=== PATIENT | male | born 1985 | race Caucasian/White ===

== ENCOUNTER 2022-02-26 12:22 | Emergency (ER) | payer BC, SELFPAY ==
[2022-02-26 12:35] VITALS: BP 121/84; PULSE 123; RESP 14; TEMP 36.7; O2SAT 95; BMI 31.2
--- NOTE | 2022-02-26 13:02 | ED.GENADULT ---
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 He has felt a lump there for period of time. 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 The pain is worse with moving flexion extension of his thumb. He has tried some ibuprofen without much success. His work is very heavy. No prior similar injury. Reports the pain is pretty significant and 5 r 6/10 in his forearm Related Data Home Medications Medication Instructions Recorded Confirmed bupropion HCl 150 mg tablet,12 hr mg PO 02/26/22 sustained-release omeprazole 40 mg capsule,delayed mg 02/26/22 release quetiapine 100 mg tablet (Seroquel) mg 02/26/22 quetiapine 200 mg tablet mg 02/26/22 Allergies Allergy/AdvReac Type Severity Reaction Status Date / Time codeine Allergy Severe Dyspnea Verified 02/26/22 12:52 Review of Systems Status of ROS: Reports: 6 or more systems reviewed and unremarkable except as noted in History and below PFSH PFSH Surgical History S/P cholecystectomy Social History Smoking Status: Current every day smoker What tobacco products do you use: cigarettes How often do you have a drink containing alcohol: 2-3 times a week AUDIT-C Alcohol total score: 3 Non-prescribed substance use: denies use Exam Narrative: Exam Narrative: Objective: Patient's vital signs show slightly elevated pulse His right forearm shows de Quervain tenosynovitis and tendon inflammation or injury with flexion extension of his thumb and wrist. Mild soft tissue swelling of the entire forearm from mid forearm distally. Good distal CMS. Moves his fingers fully. No redness or warmth. Const: Vital Signs, click to edit/add: Vital Signs - 24 hr 02/26/22 12:35 Temperature 98.1 F Pulse Rate [Pulse Oximeter] 123 H Respiratory Rate 14 Blood Pressure [Le ft Upper Arm] 121/84 Pulse Oximetry 95 Oxygen Delivery Me thod Room Air Course Vital Signs Vital signs: Initial Vital Signs Temperature 98.1 F 02/26/22 12:35 Temperature Source Temporal Artery Scan 02/26/22 12:35 Pulse Rate 123 H 02/26/22 12:35 Pulse Rhythm 02/26/22 12:35 Respiratory Rate 14 02/26/22 12:35 Blood Pressure 121/84 02/26/22 12:35 Blood Pressure Mean 96 02/26/22 12:35 Blood Pressure Position Sitting 02/26/22 12:35 Pulse Oximetry 95 02/26/22 12:35 Oxygen Delivery Method 02/26/22 12:35 Vital Signs Temperature 98.1 F 02/26/22 12:35 Pulse Rate 123 H 02/26/22 12:35 Respiratory Rate 14 02/26/22 12:35 Blood Pressure 121/84 02/26/22 12:35 Pulse Oximetry 95 02/26/22 12:35 Oxygen Delivery Method 02/26/22 12:35 Temperature 98.1 F 02/26/22 12:35 Pulse Rate 123 H 02/26/22 12:35 Respiratory Rate 14 02/26/22 12:35 Blood Pressure 121/84 02/26/22 12:35 Pulse Oximetry 95 02/26/22 12:35 Oxygen Delivery Method 02/26/22 12:35 Medical Decision Making MDM Narrative Medical decision making narrative: The patient has tenderness with de Quervain maneuver he has tenderness in that extensor tendon area. He has swelling in his forearm. He certainly could have injured a tendon or head just simply inflammation from overuse. But this did seem to come on fairly suddenly and with heavy exertion. At this time I think be appropriate to put him in a splint, minimal use of the right hand, ibuprofen 800 mg q.i.d. for the next several days, and will have him scheduled to see Orthopedics. He might need need more advanced imaging such as MRI of his forearm. He was comfortable plan. Discharge Plan Discharge Clinical Impression: Sprain and strain of wrist Patient Disposition: Home, Self-Care Condition: Stable Additional Instructions: light activity, ice, splint, ortho appt in 2 -3 days. Activity Level: Light activity Discharge Diet: Regular Prescriptions: No Action bupropion HCl 150 mg tablet sustained-release 12 hr PO omeprazole 40 mg capsule,delayed release(DR/EC) Label Comments: TAKE 1 CAPSULE BY MOUTH DAILY BEFORE A MEAL FOR 14 DAYS quetiapine [Seroquel] 100 mg tablet Label Comments: Take one to two tablets by mouth once daily at bedtime. quetiapine 200 mg tablet Stand Alone Forms: [employer] Info Instructions
[2022-02-26] MEDS: IBUPROFEN 400 MG TABLET 800 MG PO (13:27)
[2022-02-26 13:40] VITALS: BP 121/84; PULSE 123; RESP 14; TEMP 36.7
== END 2022-02-26 13:40 | disposition home or self-care (01) ==
PROVIDERS: Emergency Provider Family Medicine
DX: S63.501A Unspecified sprain of right wrist, initial encounter (principal); X50.0XXA Overexertion from strenuous movement or load, initial encounter; Y99.0 Civilian activity done for income or pay
CPT/HCPCS: 99283; A9270

== ENCOUNTER 2022-03-23 02:23 | Emergency (ER) | payer BC, SELFPAY ==
[2022-03-23 02:27] VITALS: BP 113/91; PULSE 138; RESP 22; TEMP 36.3; O2SAT 96; BMI 35.3
--- NOTE | 2022-03-23 02:42 | CRLHL7_ITS ---
For Patients: As a result of the Century Cures Act, medical imaging exams and procedure reports are released immediately into your electronic medical record. You may view this report before your referring provider. If you have questions, please contact your health care provider. INDICATION: Cough TECHNIQUE: Chest 2 views. COMPARISON: None FINDINGS: Cardiovascular and mediastinum: Heart size and vasculature are normal in caliber and appearance. Mediastinum is within normal limits. Lungs and pleural spaces: Lungs are clear. No sign of infiltrate or mass. No sign of pleural effusion. No pneumothorax. Bones and soft tissues: No significant findings. IMPRESSION: No sign of acute disease. Dictated by Gretchen Williamson MD @ 03/23/2022 4:08:56 AM (Electronically Signed)
--- NOTE | 2022-03-23 02:42 | ED.GENADULT ---
HPI - General Adult General Time Seen by Provider: 02:43 Date Seen: 03/23/22 Chief complaint: Shortness of Breath/Dyspnea Stated complaint: Hard time breathing, cough, fluid in lungs Time Seen by Provider: 03/23/22 02:35 Source: patient Mode of arrival: ambulatory Limitations: no limitations History of Present Illness HPI narrative: 37-year-old male who comes in today with shortness of breath starting yesterday evening. He has for a couple of days. Also some nasal congestion. He has been hoarse for couple of months without sore throat. He denies nausea vomiting, has diarrhea which is usual for him. No abdominal pain. No lower extremity swelling. Some pain in the middle of his chest when he coughs. Had COVID about 8 months ago. Related Data Home Medications Medication Instructions Recorded Confirmed bupropion HCl 150 mg tablet,12 hr mg PO 02/26/22 02/28/22 sustained-release omeprazole 40 mg capsule,delayed mg 02/26/22 02/28/22 release quetiapine 100 mg tablet (Seroquel) mg 02/26/22 02/28/22 quetiapine 200 mg tablet mg 02/26/22 02/28/22 Aleve 03/23/22 albuterol sulfate 90 mcg/actuation inhalation 03/23/22 aerosol inhaler (ProAir HFA) Allergies Allergy/AdvReac Type Severity Reaction Status Date / Time codeine Allergy Severe Dyspnea Verified 03/23/22 02:30 metals AdvReac Hives Uncoded 02/28/22 09:30 Review of Systems Status of ROS: Reports: 10 or more systems reviewed and unremarkable except as noted in History and below [facility] Medical History (Updated 03/23/22 @ 03:43 by Gilson Springer MD) Anxiety Depression GERD (gastroesophageal reflux disease) IBS (irritable bowel syndrome) Low back problem Right wrist pain Surgical History S/P cholecystectomy Family History (Updated 02/28/22 @ 09:28 by Flakita Weldon CMA) Paternal Grandfather Diabetes Social History (Updated 02/28/22 @ 09:29 by Flakita Weldon CMA) Smoking Status: Current every day smoker What tobacco products do you use: cigarettes Do you use any of these nicotine containing products: None Second hand tobacco smoke exposure: No How often do you have a drink containing alcohol: 2-3 times a week AUDIT-C Alcohol total score: 3 Non-prescribed substance use: denies use Are you now , , , , never or living with a partner: Social isolation score (0-1 are the most socially isolated patients): 1 Exam Narrative: Exam Narrative: General: Well-developed and well-nourished, no acute distress Head: Atraumatic and normocephalic Eyes: Pupils are equal reactive, extraocular motions intact, conjunctiva clear ENT: External nose and ears are normal, posterior pharynx without erythema or exudate, hoarse voice Neck: No midline cervical tenderness, full spontaneous range of motion the neck, trachea midline, no adenopathy Heart: Tachycardic, regular Lungs: Clear to auscultation bilaterally without wheezes or crackles Abdomen: Soft, nontender, nondistended with active bowel sounds Musculoskeletal: No tenderness, deformity, or edema Neurologic: Awake, alert, and oriented x3, no gross focal neurologic deficits, cranial nerves intact as tested Psych: Mood and affect are appropriate Skin: No rashes Const: Vital Signs, click to edit/add: Vital Signs - 24 hr 03/23/22 02:27 03/23/22 03:01 03/23/22 03:16 Temperature 97.4 F L Pulse Rate [Left P ulse Oximeter] 138 H 112 H 105 H Respiratory Rate 22 Blood Pressure [Le ft Upper Arm] 113/91 H Pulse Oximetry 96 95 94 Oxygen Delivery Me thod Room Air Room Air 03/23/22 03:50 Temperature Pulse Rate [Left P ulse Oximeter] 115 H Respiratory Rate 20 Blood Pressure [Le ft Upper Arm] 129/92 H Pulse Oximetry 94 Oxygen Delivery Me thod Course Course Hospital Course: Patient is prior records reviewed. Includes but not limited to upper respiratory infection, pneumonia, dysrhythmia, heart failure, asthma, anemia. Patient presents with shortness of breath and cough. On exam, no hypoxia, he is tachycardic. Hoarse voice, lungs are clear. Labs and x-ray are ordered along with IV fluid EKG. Reevaluation(s) Reevaluation #1: Labs so far reassuring with normal white blood cell count, negative D-dimer, negative BNP, normal troponin is not show any acute infiltrates, radiology interpretation is pending. DuoNeb was ordered. Heart rate has improved. Time: 03:33 Reevaluation #2: Patient rechecked after nebulizer treatment. Heart rate was into the high 90s but after neb back to low 100s although does decrease into the 90s. Oxygen saturations in the mid 90s but improve after coughing. Patient feels better after nebulizer able for discharge. Time: 04:13 Vital Signs Vital signs: Initial Vital Signs Temperature 97.4 F L 03/23/22 02:27 Temperature Source Temporal Artery Scan 03/23/22 02:27 Pulse Rate 138 H 03/23/22 02:27 Respiratory Rate 22 03/23/22 02:27 Blood Pressure 113/91 H 03/23/22 02:27 Blood Pressure Mean 98 03/23/22 02:27 Blood Pressure Position Sitting 03/23/22 02:27 Pulse Oximetry 96 03/23/22 02:27 Oxygen Delivery Method 03/23/22 02:27 Vital Signs Temperature 97.4 F L 03/23/22 02:27 Pulse Rate 138 H 03/23/22 02:27 Respiratory Rate 22 03/23/22 02:27 Blood Pressure 113/91 H 03/23/22 02:27 Pulse Oximetry 96 03/23/22 02:27 Oxygen Delivery Method 03/23/22 02:27 Temperature 97.4 F L 03/23/22 02:27 Pulse Rate 115 H 03/23/22 03:50 Respiratory Rate 20 03/23/22 03:50 Blood Pressure 129/92 H 03/23/22 03:50 Pulse Oximetry 94 03/23/22 03:50 Oxygen Delivery Method 03/23/22 03:16 Medical Decision Making Medical Records Medical records reviewed: Yes I reviewed the patient's medical records Lab Data Lab results reviewed: Yes I reviewed the patient's lab results Labs: Lab Results 03/23/22 03/23/22 03/23/22 Range/Units 02:50 02:53 02:53 WBC 7.51 (4.50-11.00) K/uL RBC 4.61 (4.30-5.90) m/uL Hgb 15.5 (13.5-17.5) gm/dL Hct 45.2 (37.0-53.0) % MCV 98 (80-100) fL MCH 34 (26-34) pg MCHC 34 (32-36) gm/dL RDW Coeff of Jennifer 14.5 (11.5-15.5) % Plt Count 184 (140-440) K/uL Neut % (Auto) 55.2 (42.0-72.0) % Lymph % (Auto) 30.1 (20-44) % [place] % (Auto) 10.1 (0.0-11.0) % Eos % (Auto) 3.6 (0.0-7.0) % Baso % (Auto) 0.7 (0.0-3.0) % Neut # (Auto) 4.15 (1.7-7.0) K/uL Lymph # (Auto) 2.26 (0.90-2.90) K/uL [place] # (Auto) 0.80 (0.00-0.90) K/UL Eos # (Auto) 0.27 (0.00-0.50) K/uL Baso # (Auto) 0.05 (0.00-0.30) K/uL Abs Immat Gran (auto) 0.02 (0.00-0.30) K/uL D-Dimer Quant (PE/DVT) 0.35 (0.00-0.50) ug/ml Sodium 137 (135-149) mmol/L Potassium 3.8 (3.6-5.1) mmol/L Chloride 105 (96-114) mmol/L Carbon Dioxide 21 (20-32) mmol/L BUN 4 L (5-24) mg/dL Creatinine 0.7 (0.5-1.5) mg/dL Estimated Creat Clear 158.59 Estimated GFR 122 ml/min Glucose 109 (60-115) mg/dL Calcium 8.6 (8.4-10.6) mg/dL NT-Pro-B Natriuret Pep 16 (0-125) PG/mL POC Troponin I (0.01-0.04) ng/ml 03/23/22 Range/Units 03:10 WBC (4.50-11.00) K/uL RBC (4.30-5.90) m/uL Hgb (13.5-17.5) gm/dL Hct (37.0-53.0) % MCV (80-100) fL MCH (26-34) pg MCHC (32-36) gm/dL RDW Coeff of Jennifer (11.5-15.5) % Plt Count (140-440) K/uL Neut % (Auto) (42.0-72.0) % Lymph % (Auto) (20-44) % [place] % (Auto) (0.0-11.0) % Eos % (Auto) (0.0-7.0) % Baso % (Auto) (0.0-3.0) % Neut # (Auto) (1.7-7.0) K/uL Lymph # (Auto) (0.90-2.90) K/uL [place] # (Auto) (0.00-0.90) K/UL Eos # (Auto) (0.00-0.50) K/uL Baso # (Auto) (0.00-0.30) K/uL Abs Immat Gran (auto) (0.00-0.30) K/uL D-Dimer Quant (PE/DVT) (0.00-0.50) ug/ml Sodium (135-149) mmol/L Potassium (3.6-5.1) mmol/L Chloride (96-114) mmol/L Carbon Dioxide (20-32) mmol/L BUN (5-24) mg/dL Creatinine (0.5-1.5) mg/dL Estimated Creat Clear Estimated GFR ml/min Glucose (60-115) mg/dL Calcium (8.4-10.6) mg/dL NT-Pro-B Natriuret Pep (0-125) PG/mL POC Troponin I 0.01 (0.01-0.04) ng/ml Imaging Data Chest x-ray: Attestation: I have reviewed the pertinent imaging results. My impression: No acute findings Radiologist's impression: No sign of acute disease ECG Data Attestation: I personally reviewed and interpreted this ECG as follows: Prior ECG tracings: not available for review Interpretation: Performed at 2:42 a.m. demonstrates sinus tachycardia rate 113, no elevations or depressions, normal intervals, normal axis, QTC 455. No prior for comparison. Discharge Plan Discharge Clinical Impression: Hoarseness, Acute bronchitis Patient Disposition: Home, Self-Care Condition: Stable Instructions: Acute Bronchitis (ED) Additional Instructions: Follow-up with your primary care doctor this week. Follow-up with Dr. Hardin and regarding your hoarseness. Use your inhaler 2 puffs every 2 hours while awake today, then go back to every 4 hours as needed Start oral steroid (prednisone) later this morning Activity Level: No Restrictions Discharge Diet: Regular Prescriptions: No Action bupropion HCl 150 mg tablet sustained-release 12 hr PO omeprazole 40 mg capsule,delayed release(DR/EC) Label Comments: TAKE 1 CAPSULE BY MOUTH DAILY BEFORE A MEAL FOR 14 DAYS quetiapine [Seroquel] 100 mg tablet Label Comments: Take one to two tablets by mouth once daily at bedtime. quetiapine 200 mg tablet Aleve albuterol sulfate [ProAir HFA] 90 mcg/actuation HFA aerosol inhaler INHALATION Label Comments: INHALE 2 PUFFS FOUR TIMES DAILY NEEDED FOR SHORTNESS OF BREATH Follow Up/Referrals: Provider,Not a Local [Primary Care Provider] - Warren Kay MD [Staff Physician] - Stand Alone Forms: [employer] Info Instructions
[2022-03-23] MEDS: 0.9 % SODIUM CHLORIDE 1000 ml 1,000 ML IV (02:55)
[2022-03-23 02:56] LABS: Basophils Absolute Auto 0.05 K/uL (0.00-0.30); Basophils Percent Auto 0.7 % (0.0-3.0); Eosinophils Absolute Auto 0.27 K/uL (0.00-0.50); Eosinophils Percent Auto 3.6 % (0.0-7.0); Hematocrit 45.2 % (37.0-53.0); Hemoglobin* 15.5 gm/dL (13.5-17.5); Immature Granulocytes Abs Auto 0.02 K/uL (0.00-0.30); Lymphocytes Absolute Auto 2.26 K/uL (0.90-2.90); Lymphocytes Percent Auto 30.1 % (20-44); Mean Corpuscular HGB Conc 34 gm/dL (32-36); Mean Corpuscular Hemoglobin 34 pg (26-34); Mean Corpuscular Volume 98 fL (80-100); Monocytes Percent Auto 10.1 % (0.0-11.0); Neutrophils Absolute Auto 4.15 K/uL (1.7-7.0); Neutrophils Percent Auto 55.2 % (42.0-72.0); Platelet Count* 184 K/uL (140-440); RDW Coefficient of Variation % 14.5 % (11.5-15.5); Red Blood Count 4.61 m/uL (4.30-5.90); Slide Review Reflex No; White Blood Count* 7.51 K/uL (4.50-11.00)
[2022-03-23 03:01] VITALS: PULSE 112; O2SAT 95
[2022-03-23 03:14] LABS: Chloride* 105 mmol/L (96-114); Potassium* 3.8 mmol/L (3.6-5.1); Sodium* 137 mmol/L (135-149)
[2022-03-23 03:16] VITALS: PULSE 105; O2SAT 94
[2022-03-23 03:17] LABS: Blood Urea Nitrogen* 4 mg/dL (5-24); Carbon Dioxide* 21 mmol/L (20-32); Creatinine* 0.7 mg/dL (0.5-1.5); Est. Creatinine Clearance* 158.59; Estimated Glomerular Filt Rate 122 ml/min; Glucose* 109 mg/dL (60-115)
[2022-03-23 03:18] LABS: Calcium* 8.6 mg/dL (8.4-10.6)
[2022-03-23 03:19] LABS: D Dimer Quantitative* 0.35 ug/ml (0.00-0.50)
[2022-03-23 03:26] LABS: NT Pro B Type NatriureticPept* 16 PG/mL (0-125)
[2022-03-23 03:32] LABS: Troponin, Point-of-Care* 0.01 ng/ml (0.01-0.04)
[2022-03-23] MEDS: IPRAT-ALBUT 0.5-2.5 MG/3 ML NEB 1 NEB IH (03:39)
[2022-03-23] MEDS: METHYLPREDNISOLONE SOD SUCC 62.5 MG/ML (125) 125 MG IVP (03:45)
[2022-03-23 03:50] VITALS: BP 129/92; PULSE 115; RESP 20; O2SAT 94
== END 2022-03-23 04:17 | disposition home or self-care (01) ==
PROVIDERS: Emergency Provider Family Medicine
DX: J20.9 Acute bronchitis, unspecified (principal)
CPT/HCPCS: 36415; 71046; 80048; 83880; 84484; 85025; 85379; 93005; 94640; 96374; 99284; J2930; J7030

== ENCOUNTER 2022-04-04 20:01 | Emergency (ER) | payer BC, SELFPAY ==
[2022-04-04 20:17] VITALS: BP 136/101; PULSE 112; RESP 20; TEMP 37.1; O2SAT 95; BMI 35.3
--- NOTE | 2022-04-04 20:42 | CRLHL7_ITS ---
For Patients: As a result of the Cures Act, medical imaging exams and procedure reports are released immediately into your electronic medical record. You may view this report before your referring provider. If you have questions, please contact your health care provider. INDICATION: Lower right greater than left anterior chest pain. COMPARISON: 03/23/2022. FINDINGS: The cardiomediastinal silhouette, lung parenchyma, pulmonary vasculature and pleural surfaces are all normal in appearance. The bony thorax appears intact. IMPRESSION: Negative study. Dictated by Milton Thompson MD @ 04/04/2022 9:29:27 PM (Electronically Signed)
--- NOTE | 2022-04-04 20:50 | ED_ITS ---
HPI - Chest Pain General Chief Complaint: Chest Pain Stated Complaint: TIGHTENING IN CHEST,SWOLLEN LEGS,ARTERIES HURT Time Seen by Provider: 04/04/22 20:33 History of Present Illness HPI narrative: 37-year-old man presenting to the emergency department with concern of chest pain. Occurred earlier today at rest in the right chest a intense sense of pressure radiating across to his low left. This apparently settled and then recurred this evening waking him from sleep. Couple of days ago he had noted some rapid heartbeats at 1 point but has not actually noticed that here today. I would note that he is tachycardic on arrival. He admits to being anxious about this visit. at the time of this interview he feels much better much less pain. Is not really having pleuritic pain. Has not had a cough but is being treated currently a for a sinus infection with Augmentin. Further questioning that he had had some leg pain a day ago in the right leg. Seemed spontaneous. I do note a bruise above his right knee but this was from a chair hitting him and seems separate from what he was describing. The area around his knee or the upper lower leg on the right suddenly became rather painful and he then developed significant swelling in his ankle and upper foot still having pain in the area around the ankle. The swelling has diminished. No significant family history of cardiovascular disease. Smokes a pack a day and admittedly drinks too much fireball. Due to ?sludge? he has had a cholecystectomy. Related Data Home Medications Medication Instructions Recorded Confirmed bupropion HCl 150 mg tablet,12 hr mg PO 02/26/22 04/01/22 sustained-release omeprazole 40 mg capsule,delayed mg 02/26/22 04/01/22 release quetiapine 100 mg tablet (Seroquel) mg 02/26/22 04/01/22 quetiapine 200 mg tablet mg 02/26/22 04/01/22 Aleve 03/23/22 04/01/22 albuterol sulfate 90 mcg/actuation inhalation 03/23/22 04/01/22 aerosol inhaler (ProAir HFA) Previous Rx's Medication Instructions Recorded amoxicillin 875 mg-potassium 1 tab PO BID #20 tabs 04/01/22 clavulanate 125 mg tablet Allergies Allergy/AdvReac Type Severity Reaction Status Date / Time codeine Allergy Severe Dyspnea Verified 04/01/22 13:28 metals AdvReac Hives Uncoded 04/01/22 13:28 Review of Systems Status of ROS Reports: 10 or more systems reviewed and unremarkable except as noted in History and below [facility] Medical History Anxiety Depression GERD (gastroesophageal reflux disease) IBS (irritable bowel syndrome) Low back problem Right wrist pain Surgical History S/P cholecystectomy Family History (Updated 02/28/22 @ 09:28 by Flakita Weldon [facility]) Paternal Grandfather Diabetes Social History Smoking Status: Current every day smoker What tobacco products do you use: cigarettes Do you use any of these nicotine containing products: None Second hand tobacco smoke exposure: No How often do you have a drink containing alcohol: 4 or more times a week How many standard drinks containing alcohol do you have on a typical day: 3 or 4 How often do you have six or more drinks on one occasion: Less than monthly AUDIT-C Alcohol total score: 6 Non-prescribed substance use: denies use Are you now , , , , never or living with a partner: Social isolation score (0-1 are the most socially isolated patients): 1 Exam Narrative Exam Narrative: Pleasant. Generally flushed. 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 Extensive tattoos over upper back and lower legs. Feet and ankles seem a little puffy bilaterally. No erythematous changes here though. Fully alert. Somewhat tremulous. Cranial nerves 2-12 intact. Cardiovascular is tachycardic regular rhythm Oropharynx hyperemic. Sticky. Lungs are clear. Abdomen is overweight soft. He is moderately tender to palpation the right upper quadrant rib margin continuing to the epigastrium. A little bit also on the left in the same subcostal area. Clearly more tender in the right than elsewhere. Const Vital Signs, click to edit/add: Vital Signs - 24 hr 04/04/22 20:17 04/04/22 21:57 Temperature 98.7 F Pulse Rate [Pulse Oximeter] 112 H 105 H Respiratory Rate 20 18 Blood Pressure [Right Upper Arm] 136/101 H 143/91 H Pulse Oximetry 95 97 Oxygen Delivery Method Room Air Documenting provider has reviewed patient's vital signs: yes Course Course Hospital Course: Initiated on IV fluids. Initial EKG reviewed by me shows a sinus tachycardia at 118. Some baseline irritability consistent with his tremor Reevaluation(s) Reevaluation #1: With return of pain is requesting pain medication. Palpation in the right upper abdomen is clearly source of maximal pain. Still tremulous. Looks more flushed. Ordered for ketorolac and lorazepam. Ultrasound limited pending. Transaminases were rather elevated, CRP as well at 2.7. However bilirubin was normal Reevaluation #2: Overall improved. No longer so flushed. Less tremulous Vital Signs Vital signs: Initial Vital Signs Temperature 98.7 F 04/04/22 20:17 Temperature Source Temporal Artery Scan 04/04/22 20:17 Pulse Rate 112 H 04/04/22 20:17 Respiratory Rate 20 04/04/22 20:17 Blood Pressure 136/101 H 04/04/22 20:17 Blood Pressure Mean 112 04/04/22 20:17 Pulse Oximetry 95 04/04/22 20:17 Oxygen Delivery Method 04/04/22 20:17 Vital Signs Temperature 98.7 F 04/04/22 20:17 Pulse Rate 112 H 04/04/22 20:17 Respiratory Rate 20 04/04/22 20:17 Blood Pressure 136/101 H 04/04/22 20:17 Pulse Oximetry 95 04/04/22 20:17 Oxygen Delivery Method 04/04/22 20:17 Temperature 98.7 F 04/04/22 20:17 Pulse Rate 105 H 04/04/22 21:57 Respiratory Rate 18 04/04/22 21:57 Blood Pressure 143/91 H 04/04/22 21:57 Pulse Oximetry 97 04/04/22 21:57 Oxygen Delivery Method 04/04/22 20:17 MDM - Chest Pain MDM Narrative Medical decision making narrative: Chest x-ray reviewed by me was negative. No pneumothorax or other acute pulmonary process. Spoke to tech after abdominal ultrasound, limited. To the abdominal gas is little difficult to visualize. Other than a fatty liver appeared normal with common bile duct of 5 mm. Radiology over read reviewed suggestive of steatosis Added on hepatitis panel (pending as send out) though more likely etiology of evident inflammation in the liver is alcohol consumption Medical Records Data Attestation: I reviewed the patient's medical records. Lab Data Attestation: I reviewed the patient's lab results. Labs: Lab Results 04/04/22 04/04/22 04/04/22 Range/Units 21:00 21:00 21:00 WBC 7.19 (4.50-11.00) K/uL RBC 4.15 L (4.30-5.90) m/uL Hgb 14.0 (13.5-17.5) gm/dL Hct 40.9 (37.0-53.0) % MCV 99 (80-100) fL MCH 34 (26-34) pg MCHC 34 (32-36) gm/dL RDW Coeff of Jennifer 14.6 (11.5-15.5) % Plt Count 198 (140-440) K/uL Neut % (Auto) 68.9 (42.0-72.0) % Lymph % (Auto) 20.4 (20-44) % Ross % (Auto) 7.4 (0.0-11.0) % Eos % (Auto) 2.5 (0.0-7.0) % Baso % (Auto) 0.4 (0.0-3.0) % Neut # (Auto) 4.95 (1.7-7.0) K/uL Lymph # (Auto) 1.47 (0.90-2.90) K/uL [place] # (Auto) 0.50 (0.00-0.90) K/UL Eos # (Auto) 0.18 (0.00-0.50) K/uL Baso # (Auto) 0.03 (0.00-0.30) K/uL Abs Immat Gran (auto) 0.03 (0.00-0.30) K/uL D-Dimer Quant (PE/DVT) 0.37 (0.00-0.50) ug/ml VBG pH (7.32-7.43) VBG pCO2 (40-50) mmHG VBG pO2 (25-47) mmHG VBG HCO3 (21-28) mmol/L Sodium 137 (135-149) mmol/L Potassium 3.5 L (3.6-5.1) mmol/L Chloride 107 (96-114) mmol/L Carbon Dioxide 24 (20-32) mmol/L BUN 5 (5-24) mg/dL Creatinine 0.6 (0.5-1.5) mg/dL Estimated Creat Clear 185.02 Estimated GFR 128 ml/min Glucose 117 H (60-115) mg/dL Calcium 8.5 (8.4-10.6) mg/dL Magnesium 1.7 (1.5-2.6) mg/dL Total Bilirubin 0.7 (0.1-1.5) mg/dL Direct Bilirubin 0.5 (0.0-0.5) mg/dL AST 129 H (12-35) U/L ALT 99 H (4-50) U/L Alkaline Phosphatase 232 H (40-150) U/L Troponin I < 0.01 L (0.01-0.04) ng/mL C-Reactive Protein 2.7 H (0.5-1.0) mg/dL NT-Pro-B Natriuret Pep 58 (0-125) PG/mL Total Protein 6.6 (6.0-8.3) g/dL Albumin 3.4 (3.3-5.0) g/dL Lipase 224 (23-300) U/L Ethyl Alcohol 0.02 (0.01-0.03) % SARS-CoV-2 (PCR) (Negative) POC Troponin I (0.01-0.04) ng/ml 04/04/22 04/04/22 04/04/22 Range/Units 21:00 21:00 21:00 WBC (4.50-11.00) K/uL RBC (4.30-5.90) m/uL Hgb (13.5-17.5) gm/dL Hct (37.0-53.0) % MCV (80-100) fL MCH (26-34) pg MCHC (32-36) gm/dL RDW Coeff of Jennifer (11.5-15.5) % Plt Count (140-440) K/uL Neut % (Auto) (42.0-72.0) % Lymph % (Auto) (20-44) % Ross % (Auto) (0.0-11.0) % Eos % (Auto) (0.0-7.0) % Baso % (Auto) (0.0-3.0) % Neut # (Auto) (1.7-7.0) K/uL Lymph # (Auto) (0.90-2.90) K/uL Ross # (Auto) (0.00-0.90) K/UL Eos # (Auto) (0.00-0.50) K/uL Baso # (Auto) (0.00-0.30) K/uL Abs Immat Gran (auto) (0.00-0.30) K/uL D-Dimer Quant (PE/DVT) (0.00-0.50) ug/ml VBG pH 7.507 H (7.32-7.43) VBG pCO2 31 L (40-50) mmHG VBG pO2 66.7 H (25-47) mmHG VBG HCO3 25 (21-28) mmol/L Sodium (135-149) mmol/L Potassium (3.6-5.1) mmol/L Chloride (96-114) mmol/L Carbon Dioxide (20-32) mmol/L BUN (5-24) mg/dL Creatinine (0.5-1.5) mg/dL Estimated Creat Clear Estimated GFR ml/min Glucose (60-115) mg/dL Calcium (8.4-10.6) mg/dL Magnesium (1.5-2.6) mg/dL Total Bilirubin (0.1-1.5) mg/dL Direct Bilirubin (0.0-0.5) mg/dL AST (12-35) U/L ALT (4-50) U/L Alkaline Phosphatase (40-150) U/L Troponin I (0.01-0.04) ng/mL C-Reactive Protein (0.5-1.0) mg/dL NT-Pro-B Natriuret Pep (0-125) PG/mL Total Protein (6.0-8.3) g/dL Albumin (3.3-5.0) g/dL Lipase (23-300) U/L Ethyl Alcohol (0.01-0.03) % SARS-CoV-2 (PCR) Negative SARS-CoV-2 (Negative) POC Troponin I 0.00 L (0.01-0.04) ng/ml Discharge Plan Discharge Clinical Impression: Right upper quadrant abdominal pain, Hepatic steatosis, Anxiety Patient Disposition: Home, Self-Care Condition: Improved Additional Instructions: Yes I do think it is important that you cut back on your alcohol consumption. I think it is likely contributing to what we are seeing here in your liver and possibly your pain and likely your heartburn symptoms. Return for marked increase in persistent pain, associated shortness of breath or fever. Do what you can to quit smoking; I know, all these suggestions. Quitplan used to have nicotine replacement and coaching. might want to follow up with your care provider to review your anxiety symptoms/treatment. 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 Prescriptions: No Action amoxicillin-pot clavulanate 875-125 mg tablet 1 tab PO BID Qty: 20 0RF bupropion HCl 150 mg tablet sustained-release 12 hr PO omeprazole 40 mg capsule,delayed release(DR/EC) Label Comments: TAKE 1 CAPSULE BY MOUTH DAILY BEFORE A MEAL FOR 14 DAYS quetiapine [Seroquel] 100 mg tablet Label Comments: Take one to two tablets by mouth once daily at bedtime. quetiapine 200 mg tablet Aleve albuterol sulfate [ProAir HFA] 90 mcg/actuation HFA aerosol inhaler INHALATION Label Comments: INHALE 2 PUFFS FOUR TIMES DAILY NEEDED FOR SHORTNESS OF BREATH Follow Up/Referrals: Provider,Not a Local [Primary Care Provider] - Stand Alone Forms: [employer] Info Instructions
[2022-04-04 21:17] LABS: HCO3 VBG 25 mmol/L (21-28); PCO2 VBG 31 mmHG (40-50); PO2 VBG 66.7 mmHG (25-47); pH VBG 7.507 (7.32-7.43)
[2022-04-04 21:19] LABS: Basophils Absolute Auto 0.03 K/uL (0.00-0.30); Basophils Percent Auto 0.4 % (0.0-3.0); Eosinophils Absolute Auto 0.18 K/uL (0.00-0.50); Eosinophils Percent Auto 2.5 % (0.0-7.0); Hematocrit 40.9 % (37.0-53.0); Immature Granulocytes Abs Auto 0.03 K/uL (0.00-0.30); Lymphocytes Absolute Auto 1.47 K/uL (0.90-2.90); Lymphocytes Percent Auto 20.4 % (20-44); Mean Corpuscular HGB Conc 34 gm/dL (32-36); Mean Corpuscular Hemoglobin 34 pg (26-34); Mean Corpuscular Volume 99 fL (80-100); Monocytes Percent Auto 7.4 % (0.0-11.0); Neutrophils Absolute Auto 4.95 K/uL (1.7-7.0); Neutrophils Percent Auto 68.9 % (42.0-72.0); Platelet Count* 198 K/uL (140-440); RDW Coefficient of Variation % 14.6 % (11.5-15.5); Red Blood Count 4.15 m/uL (4.30-5.90); White Blood Count* 7.19 K/uL (4.50-11.00)
[2022-04-04 21:21] LABS: Slide Review Reflex No
[2022-04-04] MEDS: 0.9 % SODIUM CHLORIDE 1000 ml 1,000 ML IV (21:25)
[2022-04-04 21:34] LABS: Albumin* 3.4 g/dL (3.3-5.0); Chloride* 107 mmol/L (96-114)
[2022-04-04 21:35] LABS: Potassium* 3.5 mmol/L (3.6-5.1); Sodium* 137 mmol/L (135-149)
[2022-04-04 21:37] LABS: Carbon Dioxide* 24 mmol/L (20-32); Creatinine* 0.6 mg/dL (0.5-1.5); Est. Creatinine Clearance* 185.02; Estimated Glomerular Filt Rate 128 ml/min
[2022-04-04 21:38] LABS: Alanine Aminotransferase* 99 U/L (4-50); Alkaline Phosphatase* 232 U/L (40-150); Aspartate Amino Transferase* 129 U/L (12-35); Bilirubin Direct* 0.5 mg/dL (0.0-0.5); Bilirubin Total* 0.7 mg/dL (0.1-1.5); Blood Urea Nitrogen* 5 mg/dL (5-24); Calcium* 8.5 mg/dL (8.4-10.6); Glucose* 117 mg/dL (60-115); Lipase* 224 U/L (23-300); Magnesium* 1.7 mg/dL (1.5-2.6); Total Protein* 6.6 g/dL (6.0-8.3)
[2022-04-04 21:39] LABS: Ethanol* 0.02 % (0.01-0.03)
[2022-04-04 21:40] LABS: C Reactive Protein* 2.7 mg/dL (0.5-1.0); D Dimer Quantitative* 0.37 ug/ml (0.00-0.50)
[2022-04-04 21:47] LABS: NT Pro B Type NatriureticPept* 58 PG/mL (0-125)
[2022-04-04 21:57] VITALS: BP 143/91; PULSE 105; RESP 18; O2SAT 97
--- NOTE | 2022-04-04 22:06 | CRLHL7_ITS ---
For Patients: As a result of the Century Cures Act, medical imaging exams and procedure reports are released immediately into your electronic medical record. You may view this report before your referring provider. If you have questions, please contact your health care provider. INDICATION: Right upper quadrant abdomen pain. TECHNIQUE: Ultrasound abdomen limited. Sonographic images of the right upper quadrant were obtained using alvarez-scale and color Doppler images. COMPARISON: None. FINDINGS: Liver: Increased hepatic echotexture suggestive of chronic hepatocellular disease, including steatosis. No suspicious masses. No intrahepatic biliary dilatation. Gallbladder: Surgically absent Common bile duct: 5 mm. Pancreas: Not well seen. Right kidney: Limited evaluation secondary to body habitus. Otherwise, normal. Vasculature: Poorly visualized. IMPRESSION: Increased hepatic echotexture suggestive of chronic hepatocellular disease, including steatosis. Dictated by Cornell aHle MD @ 04/04/2022 11:35:17 PM (Electronically Signed)
[2022-04-04 22:23] LABS: Troponin I* < 0.01 ng/mL (0.01-0.04)
[2022-04-04] MEDS: LORazepam 2 MG/ML inj 1 MG IVP (22:36)
[2022-04-04] MEDS: KETOROLAC 30 MG/ML inj IVP (22:37)
[2022-04-04 23:03] LABS: SARS PCR* Negative SARS-CoV-2 (Negative)
[2022-04-07 11:12] LABS: Hepatitis B Core Antibody, IgM Negative (Negative); Hepatitis B Surface Antigen Negative (Negative); Hepatitis C Antibody by CIA Negative (Negative)
== END 2022-04-05 00:52 | disposition home or self-care (01) ==
PROVIDERS: Emergency Provider Family Medicine
DX: R10.11 Right upper quadrant pain (principal); K76.0 Fatty (change of) liver, not elsewhere classified; F41.9 Anxiety disorder, unspecified
CPT/HCPCS: 36415; 71045; 76705; 80048; 80074; 80076; 82077; 82803; 83690; 83735; 83880; 84484; 85025; 85379; 86140; 87635; 93005; 94761; 96374; 96375; 99284; J1885; J2060; J7030

== ENCOUNTER 2022-04-30 20:50 | Emergency (ER) | payer BC, SELFPAY ==
[2022-04-30] VITALS (13 sets, daily range): BP systolic 126–148; BP diastolic 84–98; PULSE 93–118; RESP 22; TEMP 36.8; O2SAT 93–99; BMI 35.3
--- NOTE | 2022-04-30 21:26 | ED.GENADULT ---
HPI - General Adult General Chief complaint: Abdominal Pain Stated complaint: Shortness of Breath Chest Tightness Time Seen by Provider: 04/30/22 20:52 History of Present Illness HPI narrative: 37-year-old contact man returning to the emergency department with concern of chest tightness difficulty breathing during this with questioning he would attribute to alcohol withdrawal. Has been actively working today has had small glass I take to mean about 8 oz of fireball. Had been as much as a ?large bottle?. Yesterday 2 glasses. Does not have a history of withdrawal beyond shakes vomiting as well having vomited without hematemesis about 4 times over the last 9 hours since noon. And he tries to drink something. No history of pancreatitis. Is having some abdominal discomfort during describes more of a fullness in the tightness. Is status post cholecystectomy for ?sludge?. Does have some medications in the form of Seroquel for sleep but he has been having trouble breathing on it ENT visit it sounds like about a month ago and is pending a sleep study. No history of DTs/seizures. Does have a history of substance abuse beyond alcohol the urine half ago. Was sober of alcohol approximately a year prior to this last February. Last visit to this department I saw Mr. Romeo ruffin about a month ago. He indicates about a week of less drinking and then escalated again Related Data Home Medications Medication Instructions Recorded Confirmed bupropion HCl 150 mg tablet,12 hr 150 mg PO DAILY 02/26/22 04/30/22 sustained-release quetiapine 100 mg tablet (Seroquel) mg 02/26/22 04/01/22 quetiapine 200 mg tablet 200 mg PO QHS 02/26/22 04/30/22 Aleve PRN 03/23/22 04/01/22 albuterol sulfate 90 mcg/actuation 2 inh inhalation PRN 03/23/22 04/01/22 aerosol inhaler (ProAir HFA) topiramate 50 mg tablet mg 04/30/22 Previous Rx's Medication Instructions Recorded lorazepam 1 mg tablet 1 mg PO TID PRN anxiety #10 tabs 05/01/22 ondansetron 4 mg disintegrating 4 mg PO Q4-6H PRN nausea and 05/01/22 tablet vomiting #12 tabs propranolol 20 mg tablet 20 mg PO TID PRN palpitations #30 05/01/22 tabs Allergies Allergy/AdvReac Type Severity Reaction Status Date / Time codeine Allergy Severe Dyspnea Verified 04/30/22 21:04 metals AdvReac Hives Uncoded 04/01/22 13:28 Review of Systems Status of ROS: Reports: 10 or more systems reviewed and unremarkable except as noted in History and below [facility] Medical History Anxiety Depression GERD (gastroesophageal reflux disease) IBS (irritable bowel syndrome) Low back problem Right wrist pain Surgical History S/P cholecystectomy Family History Paternal Grandfather Diabetes Social History Smoking Status: Current every day smoker What tobacco products do you use: cigarettes Do you use any of these nicotine containing products: None Second hand tobacco smoke exposure: No How often do you have a drink containing alcohol: 4 or more times a week How many standard drinks containing alcohol do you have on a typical day: 3 or 4 How often do you have six or more drinks on one occasion: Less than monthly AUDIT-C Alcohol total score: 6 Non-prescribed substance use: denies use Are you now , , , , never or living with a partner: Social isolation score (0-1 are the most socially isolated patients): 1 service: No Exam Narrative: Exam Narrative: Pleasant. Generally flushed. Large man. Numerous tattoos. Generally tremulous. Slightly labored with breathing. Cranial nerves 2-12 intact Head is atraumatic Oropharynx is sticky. Cardiovascular is tachycardic regular rhythm. Abdomen is full tense but not terribly tender. Extremities well perfused without edema. Moving all extremities without difficulty Const: Vital Signs, click to edit/add: Vital Signs - 24 hr 04/30/22 21:01 04/30/22 21:55 04/30/22 21:20 Temperature 98.2 F Pulse Rate 103 H Pulse Rate [Pulse Oximeter] 118 H Respiratory Rate 22 Blood Pressure Blood Pressure [Ri ght Upper Arm] 148/98 H Pulse Oximetry 96 97 99 Oxygen Delivery Me thod Room Air 04/30/22 22:00 04/30/22 22:02 04/30/22 22:03 Temperature Pulse Rate 103 H 98 102 H Pulse Rate [Pulse Oximeter] Respiratory Rate Blood Pressure 135/96 H Blood Pressure [Ri ght Upper Arm] Pulse Oximetry 96 95 93 Oxygen Delivery Me thod 04/30/22 22:30 04/30/22 22:32 04/30/22 23:00 Temperature Pulse Rate 93 93 97 Pulse Rate [Pulse Oximeter] Respiratory Rate Blood Pressure 137/94 H Blood Pressure [Ri ght Upper Arm] Pulse Oximetry 94 93 94 Oxygen Delivery Me thod 04/30/22 23:02 04/30/22 23:03 04/30/22 23:30 Temperature Pulse Rate 95 93 93 Pulse Rate [Pulse Oximeter] Respiratory Rate Blood Pressure 130/86 Blood Pressure [Ri ght Upper Arm] Pulse Oximetry 94 94 94 Oxygen Delivery Me thod 04/30/22 23:32 05/01/22 01:02 05/01/22 00:02 Temperature 98.2 F Pulse Rate 95 90 Pulse Rate [Pulse Oximeter] 100 Respiratory Rate 22 Blood Pressure 126/84 134/95 H Blood Pressure [Ri ght Upper Arm] 121/78 Pulse Oximetry 95 95 94 Oxygen Delivery Me thod Room Air 05/01/22 00:35 05/01/22 01:02 05/01/22 01:32 Temperature Pulse Rate 96 104 H 96 Pulse Rate [Pulse Oximeter] Respiratory Rate Blood Pressure 122/78 121/76 127/86 Blood Pressure [Ri ght Upper Arm] Pulse Oximetry 94 95 94 Oxygen Delivery Me thod 05/01/22 01:58 Temperature 98.2 F Pulse Rate Pulse Rate [Pulse Oximeter] 100 Respiratory Rate 22 Blood Pressure Blood Pressure [Ri ght Upper Arm] 121/78 Pulse Oximetry Oxygen Delivery Me thod Documenting provider has reviewed patient's vital signs: yes Course Course Hospital Course: I think majority of symptoms can be explained by alcohol withdrawal. Will hydrate. Given antiemetic, propranolol and fluids. Reevaluation(s) Reevaluation #1: Overall improved. Less tremulous. Less flushed. Still little labored in breathing and he is wondering whether not may have with all the vomiting aspirated some ?water? and anxiety is driving some of this request. I do not think it is unreasonable though did do a chest x-ray complaint of chest discomfort. Normal chest x-ray one view reviewed by me. Milan's reassured. We did attempt of and detox placement. No beds are available. Information is given for discharge Able to tolerate fluid intake. Vital Signs Vital signs: Initial Vital Signs Temperature 98.2 F 04/30/22 21:01 Temperature Source Temporal Artery Scan 04/30/22 21:01 Pulse Rate 118 H 04/30/22 21:01 Pulse Rhythm 04/30/22 21:01 Respiratory Rate 22 04/30/22 21:01 Blood Pressure 148/98 H 04/30/22 21:01 Blood Pressure Mean 114 04/30/22 21:01 Blood Pressure Position Sitting 04/30/22 21:01 Pulse Oximetry 96 04/30/22 21:01 Oxygen Delivery Method 04/30/22 21:01 Vital Signs Temperature 98.2 F 04/30/22 21:01 Pulse Rate 118 H 04/30/22 21:01 Respiratory Rate 22 04/30/22 21:01 Blood Pressure 148/98 H 04/30/22 21:01 Pulse Oximetry 96 04/30/22 21:01 Oxygen Delivery Method 04/30/22 21:01 Temperature 98.2 F 05/01/22 01:58 Pulse Rate 100 05/01/22 01:58 Respiratory Rate 22 05/01/22 01:58 Blood Pressure 121/78 05/01/22 01:58 Pulse Oximetry 94 05/01/22 01:32 Oxygen Delivery Method 05/01/22 01:02 Medical Decision Making MDM Narrative Medical decision making narrative: I am concerned regarding findings in the live and now with elevating unconjugated bilirubin. I do think though they can be explained alcoholic hepatitis/steatosis. From prior visit hepatitides panel was normal. Mildly elevated lipase. Is requesting upon departure something to help with the shakes. Discussed that I would be prescribing propranolol (It sounds like he has had that in the past) and that he needs to establish primary care. He does appear committed/interested to achieving sobriety. Certainly easier said than done. No detox beds available; may pursue this as outpatient if needed. Lab Data Labs: Lab Results 04/30/22 04/30/22 04/30/22 Range/Units 21:20 21:20 21:20 WBC 12.15 H (4.50-11.00) K/uL RBC 4.49 (4.30-5.90) m/uL Hgb 15.5 (13.5-17.5) gm/dL Hct 44.8 (37.0-53.0) % MCV 100 (80-100) fL MCH 35 H (26-34) pg MCHC 35 (32-36) gm/dL Plt Count 235 (140-440) K/uL Neut % (Auto) 64.7 (42.0-72.0) % Lymph % (Auto) 25.9 (20-44) % [place] % (Auto) 7.8 (0.0-11.0) % Eos % (Auto) 0.4 (0.0-7.0) % Baso % (Auto) 0.7 (0.0-3.0) % Neut # (Auto) 7.90 H (1.7-7.0) K/uL Lymph # (Auto) 3.10 H (0.90-2.90) K/uL [place] # (Auto) 0.90 (0.00-0.90) K/UL Eos # (Auto) 0.00 (0.00-0.50) K/uL Baso # (Auto) 0.10 (0.00-0.30) K/uL Abs Immat Gran (auto) 0.10 (0.00-0.30) K/uL Imm/Tot Granulo (auto) 0.5 % Sodium 132 L (135-149) mmol/L Potassium 4.2 (3.6-5.1) mmol/L Chloride 103 (96-114) mmol/L Carbon Dioxide 18 L (20-32) mmol/L BUN 5 (5-24) mg/dL Creatinine 0.7 (0.5-1.5) mg/dL Estimated Creat Clear 158.59 Estimated GFR 122 ml/min Glucose 103 (60-115) mg/dL Venous Lactic Acid (Serial Order) Calcium 9.5 (8.4-10.6) mg/dL Total Bilirubin (0.1-1.5) mg/dL Direct Bilirubin (0.0-0.5) mg/dL AST (12-35) U/L ALT (4-50) U/L Alkaline Phosphatase (40-150) U/L Troponin I (0.01-0.04) ng/mL C-Reactive Protein 3.7 H (0.5-1.0) mg/dL Total Protein (6.0-8.3) g/dL Albumin (3.3-5.0) g/dL Lipase 327 H (23-300) U/L Ethyl Alcohol 0.03 (0.01-0.03) % 04/30/22 Range/Units 21:20 WBC (4.50-11.00) K/uL RBC (4.30-5.90) m/uL Hgb (13.5-17.5) gm/dL Hct (37.0-53.0) % MCV (80-100) fL MCH (26-34) pg MCHC (32-36) gm/dL Plt Count (140-440) K/uL Neut % (Auto) (42.0-72.0) % Lymph % (Auto) (20-44) % [place] % (Auto) (0.0-11.0) % Eos % (Auto) (0.0-7.0) % Baso % (Auto) (0.0-3.0) % Neut # (Auto) (1.7-7.0) K/uL Lymph # (Auto) (0.90-2.90) K/uL [place] # (Auto) (0.00-0.90) K/UL Eos # (Auto) (0.00-0.50) K/uL Baso # (Auto) (0.00-0.30) K/uL Abs Immat Gran (auto) (0.00-0.30) K/uL Imm/Tot Granulo (auto) % Sodium (135-149) mmol/L Potassium (3.6-5.1) mmol/L Chloride (96-114) mmol/L Carbon Dioxide (20-32) mmol/L BUN (5-24) mg/dL Creatinine (0.5-1.5) mg/dL Estimated Creat Clear Estimated GFR ml/min Glucose (60-115) mg/dL Venous Lactic Acid (Serial Order) Calcium (8.4-10.6) mg/dL Total Bilirubin 2.9 H (0.1-1.5) mg/dL Direct Bilirubin 1.8 H (0.0-0.5) mg/dL AST 195 H (12-35) U/L ALT 61 H (4-50) U/L Alkaline Phosphatase 353 H (40-150) U/L Troponin I < 0.01 L (0.01-0.04) ng/mL C-Reactive Protein (0.5-1.0) mg/dL Total Protein 8.1 (6.0-8.3) g/dL Albumin 4.2 (3.3-5.0) g/dL Lipase (23-300) U/L Ethyl Alcohol (0.01-0.03) % ECG Data Attestation: I personally reviewed and interpreted this ECG as follows: (Sinus tachycardia rate of 104) Discharge Plan Discharge Clinical Impression: Alcohol withdrawal, Anxiety, Alcoholic hepatitis, Alcoholic gastritis Patient Disposition: Home w/ Parent or Adult Condition: Improved Additional Instructions: It is critical that you stop drinking. Please return to AA. Go to a meeting tomorrow morning. Try to get a little daily exercise, ideally outside. Remember to follow-up with that sleep study. Reestablish in primary care for regular visits. They can at least temporarily help you work with your anxiety and this may include medications. This is much more likely to happen with an established relationship. These are some detox options in the region. [facility] Connections & Referral [facility], [facility], [facility], [facility], Prescriptions: New propranolol 20 mg tablet 20 mg PO TID PRN (Reason: palpitations) Qty: 30 0RF lorazepam 1 mg tablet 1 mg PO TID PRN (Reason: anxiety) Qty: 10 0RF ondansetron 4 mg tablet,disintegrating 4 mg PO Q4-6H PRN (Reason: nausea and vomiting) Qty: 12 0RF No Action bupropion HCl 150 mg tablet sustained-release 12 hr 150 mg PO DAILY quetiapine [Seroquel] 100 mg tablet Label Comments: Take one to two tablets by mouth once daily at bedtime. quetiapine 200 mg tablet 200 mg PO QHS Aleve PRN albuterol sulfate [ProAir HFA] 90 mcg/actuation HFA aerosol inhaler 2 inh INHALATION PRN Label Comments: INHALE 2 PUFFS FOUR TIMES DAILY NEEDED FOR SHORTNESS OF BREATH topiramate 50 mg tablet Follow Up/Referrals: Provider,Not a Local [Primary Care Provider] - Stand Alone Forms: [employer] Info Instructions
[2022-04-30 21:39] LABS: Lactate Sepsis w/Reflex* 2.4 mmol/L (0.5-1.9)
[2022-04-30 21:46] LABS: Hemoglobin* 15.5 gm/dL (13.5-17.5); Red Blood Count 4.49 m/uL (4.30-5.90); White Blood Count* 12.15 K/uL (4.50-11.00)
[2022-04-30 21:47] LABS: Basophils Percent Auto 0.7 % (0.0-3.0); Eosinophils Percent Auto 0.4 % (0.0-7.0); Hematocrit 44.8 % (37.0-53.0); Immature Granulocytes Pct Auto 0.5 %; Lymphocytes Percent Auto 25.9 % (20-44); Mean Corpuscular HGB Conc 35 gm/dL (32-36); Mean Corpuscular Hemoglobin 35 pg (26-34); Mean Corpuscular Volume 100 fL (80-100); Monocytes Percent Auto 7.8 % (0.0-11.0); Neutrophils Percent Auto 64.7 % (42.0-72.0); Platelet Count* 235 K/uL (140-440); Slide Review Reflex No
[2022-04-30] MEDS: 0.9 % SODIUM CHLORIDE 1000 ml 1,000 ML IV (21:50)
[2022-04-30] MEDS: PROPRANOLOL 20 MG TABLET PO (21:50)
[2022-04-30] MEDS: LORazepam 2 MG/ML inj 1 MG IVP (21:50)
[2022-04-30 21:55] LABS: Chloride* 103 mmol/L (96-114); Sodium* 132 mmol/L (135-149)
[2022-04-30 21:56] LABS: Potassium* 4.2 mmol/L (3.6-5.1)
[2022-04-30 21:57] LABS: Albumin* 4.2 g/dL (3.3-5.0)
[2022-04-30 21:58] LABS: Creatinine* 0.7 mg/dL (0.5-1.5); Est. Creatinine Clearance* 158.59; Estimated Glomerular Filt Rate 122 ml/min; Lipase* 327 U/L (23-300)
[2022-04-30 21:59] LABS: Blood Urea Nitrogen* 5 mg/dL (5-24); Calcium* 9.5 mg/dL (8.4-10.6); Carbon Dioxide* 18 mmol/L (20-32); Ethanol* 0.03 % (0.01-0.03); Glucose* 103 mg/dL (60-115)
[2022-04-30 22:00] LABS: Alanine Aminotransferase* 61 U/L (4-50); Alkaline Phosphatase* 353 U/L (40-150); Aspartate Amino Transferase* 195 U/L (12-35); Bilirubin Direct* 1.8 mg/dL (0.0-0.5); Bilirubin Total* 2.9 mg/dL (0.1-1.5); Total Protein* 8.1 g/dL (6.0-8.3)
[2022-04-30 22:02] LABS: C Reactive Protein* 3.7 mg/dL (0.5-1.0)
[2022-04-30 22:19] LABS: Troponin I* < 0.01 ng/mL (0.01-0.04)
[2022-04-30] MEDS: LACTATED RINGERS 1000 ML 1,000 ML IV (22:45)
[2022-04-30] MEDS: ONDANSETRON 2 MG/ML inj 4 MG IVP (23:41)
[2022-05-01 00:02] VITALS: BP 134/95; PULSE 90; O2SAT 94
[2022-05-01 00:03] LABS: Lactate Sepsis 2 Hour 1.2 mmol/L (0.5-1.9)
[2022-05-01 00:35] VITALS: BP 122/78; PULSE 96; O2SAT 94
[2022-05-01 01:02] VITALS: BP 121/76; BP 121/78; PULSE 100; PULSE 104; RESP 22; TEMP 36.8; O2SAT 95
--- NOTE | 2022-05-01 01:14 | CRLHL7_ITS ---
For Patients: As a result of the Century Cures Act, medical imaging exams and procedure reports are released immediately into your electronic medical record. You may view this report before your referring provider. If you have questions, please contact your health care provider. INDICATION: Dyspnea. TECHNIQUE: Chest 1 view. COMPARISON: 04/04/2022. FINDINGS: Cardiovascular and mediastinum: Heart size and vasculature are normal in caliber and appearance. Lungs and pleural spaces: Lungs are clear. No sign of infiltrate or mass. No sign of pleural effusion. No pneumothorax. Bones and soft tissues: No significant findings. IMPRESSION: No acute abnormality or significant interval change. Dictated by Remigio Jay MD @ 05/01/2022 1:38:48 AM (Electronically Signed)
[2022-05-01 01:32] VITALS: BP 127/86; PULSE 96; O2SAT 94
[2022-05-01 01:58] VITALS: BP 121/78; PULSE 100; RESP 22; TEMP 36.8
== END 2022-05-01 01:58 | disposition home or self-care (01) ==
PROVIDERS: Emergency Provider Family Medicine
DX: F10.239 Alcohol dependence with withdrawal, unspecified (principal); F41.9 Anxiety disorder, unspecified; K70.10 Alcoholic hepatitis without ascites; K29.20 Alcoholic gastritis without bleeding
CPT/HCPCS: 36415; 71045; 80048; 80076; 82077; 83690; 84484; 85025; 86140; 93005; 94761; 96361; 96374; 96375; 99284; A9270; J2060; J2405; J7030; J7120